=== PATIENT | male | born 1945 | race Caucasian/White ===

== ENCOUNTER → 2023-05-25 08:55 | Outpatient (BNVA) | payer MEDICARE, SELFPAY | PROVIDERS: PCP Family Medicine; Referring Provider Family Medicine; Visit Provider Nurse Practitioner Gerontology | DX: N40.1 Benign prostatic hyperplasia with lower urinary tract symptoms (principal); R39.12 Poor urinary stream | CPT/HCPCS: 51798; 99205 ==

== ENCOUNTER → 2023-06-01 08:47 | Outpatient (BNVA) | payer MEDICARE, SELFPAY | PROVIDERS: PCP Family Medicine; Referring Provider Family Medicine; Visit Provider Urology | DX: C61 Malignant neoplasm of prostate (principal); N40.1 Benign prostatic hyperplasia with lower urinary tract symptoms; N13.8 Other obstructive and reflux uropathy | CPT/HCPCS: 55700; 76872 ==

== ENCOUNTER 2023-06-01 11:15 | Outpatient (REF) | payer MEDICARE, SELFPAY ==
--- NOTE | 2023-06-01 09:20 | PROST_PTH ---
PATIENT: Jhonatan Guardado LOC: [facility] U#:[id number] AGE/SX: 77/M ROOM: RE06/01/[address]: Charles Jorge MD : 1945 BED: DIS: 06/01/2023 SPEC #: [id number] RECD: 06/01/23 12:44 STATUS: MARION RE #: [id number] ANALILIA: 06/01/23 09:[address]: Charles Jorge DEPT: Surgical Specimen RECD BY: Carolina Krishna ENTERED: 06/01/23 12:46 SP TYPE: PROST OTHR DR: Perico Peters Tissues: 1 - PROSTATE NEEDLE BIOPSY 2 - PROSTATE NEEDLE BIOPSY 3 - PROSTATE NEEDLE BIOPSY 4 - PROSTATE NEEDLE BIOPSY 5 - PROSTATE NEEDLE BIOPSY 6 - PROSTATE NEEDLE BIOPSY 7 - PROSTATE NEEDLE BIOPSY 8 - PROSTATE NEEDLE BIOPSY 9 - PROSTATE NEEDLE BIOPSY 10 - PROSTATE NEEDLE BIOPSY 11 - PROSTATE NEEDLE BIOPSY 12 - PROSTATE NEEDLE BIOPSY Procedures: GROSS AND MICRO LEVEL 4 Comments: [id number]
== END 2023-06-01 11:16 | disposition home or self-care (01) ==
LOC: LBN 11:15
PROVIDERS: PCP Family Medicine; Visit Provider Urology
DX: C61 Malignant neoplasm of prostate (principal)
CPT/HCPCS: 88305

== ENCOUNTER → 2023-06-15 14:53 | Outpatient (BNVA) | payer MEDICARE, SELFPAY | PROVIDERS: PCP Family Medicine; Referring Provider Family Medicine; Visit Provider Urology | DX: C61 Malignant neoplasm of prostate (principal) | CPT/HCPCS: 99214 ==

== ENCOUNTER → 2023-06-23 02:28 | Outpatient (CLI) | payer MEDICARE, SELFPAY ==
--- NOTE | 2023-06-23 07:00 | DI.NM_ITS ---
Exam(s) NM BONE SCAN WHOLE BODY GRP EXAM: NM BONE SCAN WHOLE BODY GRP CLINICAL HISTORY: baseline study for new diagnosis prostate ca,C61. TECHNIQUE: Injected Dose: 25 mCi Tc-99m MDP Delayed Images: 2-3 hours. COMPARISON: US POCUS EXAM from 06/01/2023 FINDINGS: Symmetric axial uptake. Bilateral renal excretion is identified. There are areas of symmetric uptake seen in the shoulders and the knees bilaterally which is likely degenerative. There is a solitary fo cus of increased radiotracer uptake at the costochondral junction of the right 5th rib. There is a f aint focus of increased radiotracer uptake at the costochondral junction of the right 3rd rib. No ac tivity is seen to definitely suggest osseous metastatic disease at this time. IMPRESSION: 1. No definite evidence of metastatic disease. DATA REPOSITORY:
== END ==
PROVIDERS: PCP Family Medicine; Visit Provider Urology
DX: C61 Malignant neoplasm of prostate (principal)
CPT/HCPCS: 78306

== ENCOUNTER → 2023-06-24 08:01 | Outpatient (BNVA) | payer MEDICARE, SELFPAY | PROVIDERS: PCP Family Medicine; Referring Provider Family Medicine; Visit Provider Urology | DX: C61 Malignant neoplasm of prostate (principal) | CPT/HCPCS: 99215 ==

== ENCOUNTER → 2024-01-10 15:14 | Outpatient (BNVA) | payer MEDICARE, SELFPAY | PROVIDERS: PCP Family Medicine; Referring Provider Family Medicine; Visit Provider Urology | DX: C61 Malignant neoplasm of prostate (principal); Z90.79 Acquired absence of other genital organ(s) | CPT/HCPCS: 99215 ==